=== PATIENT | female | born 1980 | race Two or more races ===

== ENCOUNTER 2019-05-23 10:48 | Emergency (ER) | payer OTHER ==
[~2019-05-23] VITALS: Ht 162.6 cm; Wt 62.6 kg
[2019-05-23] MEDS ORDERED: KETO10TA2 PO (11:26)
== END 2019-05-23 11:53 | disposition home or self-care (01) ==
LOC: ER 10:48
DX: M94.0 Chondrocostal junction syndrome [Tietze] (principal)

== ENCOUNTER 2019-09-04 08:18 | Emergency (ER) | payer OTHER ==
[~2019-09-04] VITALS: Ht 162.6 cm; Wt 59.0 kg
[~2019-09-04 08:18] MED LIST: KETO10TA2 PO
[2019-09-04] MEDS ORDERED: ZITHROMAX500 MG PO (12:13)
== END 2019-09-04 12:59 | disposition home or self-care (01) ==
LOC: ER 08:18
DX: R50.9 Fever, unspecified (principal); B96.0 Mycoplasma pneumoniae [M. pneumoniae] as the cause of diseases classified elsewhere